=== PATIENT | female | born 1985 | race Caucasian/White ===

== ENCOUNTER 2017-03-05 02:33 | Emergency (ER) | payer SELFPAY ==
[~2017-03-05] VITALS: Ht 160 cm; Wt 68.0 kg
[2017-03-05 02:44] LABS: BASO # 0.1 10*3/uL (0.0-0.1); BASO % 0.3 % (0.0-1.0); EOS # 0.2 10*3/uL (0.0-0.4); HEMATOCRIT 35.2 % (37.0-47.0); HEMOGLOBIN 11.8 g/dl (12.0-16.0); IG # 0.2 10*3/uL (0.0-0.1); LYMPH # 3.3 10*3/uL (1.3-4.4); LYMPH % 16.8 % (27.0-41.0); MEAN CELL VOLUME 91.9 fl (81.0-99.0); MEAN CORPUSCULAR HGB 30.8 pg (27.0-31.0); MEAN CORPUSCULAR HGB CONC 33.5 g/dl (33.0-37.0); MEAN PLATELET VOLUME 9.4 fl (9.6-12.3); MONO # 1.3 10*3/uL (0.1-1.0); MONO % 6.7 % (3.0-9.0); NEUT # 14.4 10*3/uL (2.3-7.9); NEUT % 74.4 % (47.0-73.0); PLATELET COUNT AUTOMATED 244 10*3/uL (130-400); RED BLOOD COUNT 3.83 10*6/uL (4.10-5.10); RED CELL DISTRI WIDTH 13.5 % (0-14.5); WHITE BLOOD COUNT 19.4 10*3/uL (4.8-10.8)
[2017-03-05 03:02] LABS: ALKALINE PHOSPHATASE 43 U/L (45-117); BILIRUBIN, TOTAL 0.2 mg/dl (0.2-1.0); BUN 8 mg/dl (7-24); CARBON DIOXIDE 21 mmol/L (21-32); CHLORIDE 105 mmol/L (98-107); CKMB 4.5 ng/ml (0.5-3.6); CPK 98 U/L (26-192); EST GLOM FILT AFRICAN AMERICAN > 60 ml/min; GLUCOSE 148 mg/dL (65-99); POTASSIUM 3.9 mmol/L (3.5-5.1); SGOT/AST 20 IU/L (3-35); SGPT/ALT 15 U/L (12-78); SODIUM 137 mmol/L (136-145); TOTAL PROTEIN 6.4 gm/dL (6.4-8.2)
[2017-03-05 03:10] LABS: TROPONIN I < 0.015 ng/ml (<0.045)
[2017-03-05 03:19] LABS: BILIRUBIN NEGATIVE (NEGATIVE); BLOOD NEGATIVE (NEGATIVE); CLARITY CLEAR (CLEAR); COLOR YELLOW (YELLOW); GLUCOSE NEGATIVE (NEGATIVE); KETONE NEGATIVE (NEGATIVE); LEUKO ESTERASE NEGATIVE (NEGATIVE); NITRITE NEGATIVE (NEGATIVE); PH 5.5 (5.0-9.0); PROTEIN NEGATIVE (NEGATIVE); UROBILINOGEN 0.2 E.U./dl (0.2-1.0)
[2017-03-05 03:28] LABS: URINE AMPHETAMINES < 1000 (1000ng/ml); URINE BARBITURATES < 200 (200ng/ml); URINE COCAINE < 300 (300ng/ml)
[2017-03-05 03:41] LABS: URINE REFLEX COMMENT NO (NO)
== END 2017-03-05 05:56 | disposition short-term general hospital (02) ==
LOC: ED 02:33
PROVIDERS: Emergency Medicine
DX: O9A.212 Injury, poisoning and certain other consequences of external causes complicating pregnancy, second trimester (principal); T42.8X1A Poisoning by antiparkinsonism drugs and other central muscle-tone depressants, accidental (unintentional), initial encounter; Z3A.23 23 weeks gestation of pregnancy; Y92.9 Unspecified place or not applicable

== ENCOUNTER → 2021-04-01 | Outpatient (CLI) | payer OTHER | END | disposition home or self-care (01) | LOC: RAD 12:39 | PROVIDERS: ATTEND Family Medicine | DX: M79.672 Pain in left foot (principal) ==

== ENCOUNTER 2022-08-11 01:54 | Emergency (ER) | payer OTHER ==
[2022-08-11 02:17] LABS: BASO % 0.9 % (0.0-1.0); EOS # 0.1 10*3/uL (0.0-0.4); EOS % 1.5 % (1.0-4.0); LYMPH % 44.1 % (27.0-41.0); MEAN CELL VOLUME 78.7 fl (81.0-99.0); MEAN CORPUSCULAR HGB 23.8 pg (27.0-31.0); MEAN CORPUSCULAR HGB CONC 30.3 g/dl (33.0-37.0); MEAN PLATELET VOLUME 8.5 fl (9.6-12.3); MONO # 0.4 10*3/uL (0.1-1.0); NEUT % 44.3 % (47.0-73.0); PLATELET COUNT AUTOMATED 60 10*3/uL (130-400); RED BLOOD COUNT 4.45 10*6/uL (4.10-5.10); RED CELL DISTRI WIDTH 19.9 % (0-14.5); WHITE BLOOD COUNT 4.6 10*3/uL (4.8-10.8)
[2022-08-11 02:32] LABS: ALKALINE PHOSPHATASE 71 U/L (45-117); BUN 4 mg/dl (7-24); CHLORIDE 109 mmol/L (98-107); CREATININE 0.51 mg/dL (0.55-1.02); POTASSIUM 3.5 mmol/L (3.5-5.1); SGOT/AST 122 IU/L (3-35); SGPT/ALT 56 U/L (12-78); SODIUM 146 mmol/L (136-145); TOTAL PROTEIN 8.2 gm/dL (6.4-8.2)
[2022-08-11 02:40] LABS: THYROID STIM HORMONE (HS) 0.923 uIU/ml (0.358-4.75)
== END 2022-08-11 03:05 | disposition home or self-care (01) ==
LOC: ED 01:54
PROVIDERS: Internal Medicine
DX: F10.920 Alcohol use, unspecified with intoxication, uncomplicated (principal); E83.42 Hypomagnesemia; D61.818 Other pancytopenia; R79.89 Other specified abnormal findings of blood chemistry; Y90.9 Presence of alcohol in blood, level not specified

== ENCOUNTER 2022-11-19 11:18 | Inpatient (IN) | payer MEDICAID ==
[~2022-11-19] VITALS: Ht 160 cm; Wt 56.5 kg
[2022-11-19 11:31] VITALS: BP 138/78
[2022-11-19 12:17] LABS: BASO # 0.1 10*3/uL (0.0-0.1); BASO % 0.6 % (0.0-1.0); EOS % 0.4 % (1.0-4.0); HEMATOCRIT 32.7 % (37.0-47.0); LYMPH # 0.9 10*3/uL (1.3-4.4); LYMPH % 9.2 % (27.0-41.0); MEAN CELL VOLUME 76.9 fl (81.0-99.0); MEAN CORPUSCULAR HGB 22.4 pg (27.0-31.0); MEAN CORPUSCULAR HGB CONC 29.1 g/dl (33.0-37.0); MEAN PLATELET VOLUME 8.5 fl (9.6-12.3); MONO # 0.7 10*3/uL (0.1-1.0); MONO % 7.2 % (3.0-9.0); NEUT # 7.8 10*3/uL (2.3-7.9); NEUT % 82.3 % (47.0-73.0); PLATELET COUNT AUTOMATED 147 10*3/uL (130-400); RED BLOOD COUNT 4.25 10*6/uL (4.10-5.10); RED CELL DISTRI WIDTH 21.3 % (0-14.5); WHITE BLOOD COUNT 9.5 10*3/uL (4.8-10.8)
[2022-11-19 12:55] LABS: BILIRUBIN Negative (Negative); BLOOD Negative (Negative); CLARITY Cloudy (Clear); COLOR Dark Yellow (Yellow); GLUCOSE Negative (Negative); KETONE Trace (Negative); LEUKO ESTERASE 1+ (Negative); NITRITE Positive (Negative); PH 6.5 (4.5-8.0); SPECIFIC GRAVITY 1.025 (1.001-1.030)
[2022-11-19 13:02] LABS: ALKALINE PHOSPHATASE 56 U/L (46-116); BUN 7 mg/dl (9-23); CHLORIDE 102 mmol/L (98-107); ETHYL ALCOHOL 42.9 mg/dl (<3); POTASSIUM 3.4 mmol/L (3.4-5.1); SGPT/ALT 20 U/L (10-49); TOTAL PROTEIN 7.7 gm/dL (6.0-8.0)
[2022-11-19 13:03] LABS: URINE AMPHETAMINES Negative (1000ng/ml); URINE BARBITURATES Negative (200ng/ml); URINE BENZODIAZEPINES Negative (200ng/ml); URINE CANNABINOIDS (THC) Positive (50ng/ml); URINE COCAINE Negative (300ng/ml); URINE METHADONE Negative (300ng/ml); URINE OPIATES Negative (300ng/ml); URINE PHENCYCLIDINE Negative (25ng/ml)
[2022-11-19 13:06] LABS: BACTERIA 3+; WBC 21-30 wbc/hpf (0-5)
[2022-11-19 14:40] LABS: THYROID STIM HORMONE (HS) 1.982 uIU/ml (0.550-4.780)
[2022-11-19 14:59] LABS: FREE T4 1.22 ng/dl (0.89-1.76)
[2022-11-19 15:00] VITALS: BP 120/69
[2022-11-19 20:00] VITALS: BP 122/83
[2022-11-20] VITALS: BP 123/80
[2022-11-20 05:33] LABS: ALKALINE PHOSPHATASE 48 U/L (46-116); BUN 9 mg/dl (9-23); CHLORIDE 106 mmol/L (98-107); CHOLESTEROL 162 mg/dL (<200); LDL CHOLESTEROL 71 mg/dL (9-159); POTASSIUM 3.2 mmol/L (3.4-5.1); SGPT/ALT 13 U/L (10-49); TRIGLYCERIDES 48 mg/dl (<150)
[2022-11-20 06:21] LABS: BASO # 0.1 10*3/uL (0.0-0.1); BASO % 0.7 % (0.0-1.0); EOS # 0.1 10*3/uL (0.0-0.4); EOS % 1.6 % (1.0-4.0); HEMATOCRIT 33.6 % (37.0-47.0); LYMPH # 1.2 10*3/uL (1.3-4.4); MEAN CELL VOLUME 78.9 fl (81.0-99.0); MEAN CORPUSCULAR HGB 22.3 pg (27.0-31.0); MEAN CORPUSCULAR HGB CONC 28.3 g/dl (33.0-37.0); MEAN PLATELET VOLUME 9.1 fl (9.6-12.3); MONO # 0.5 10*3/uL (0.1-1.0); MONO % 6.8 % (3.0-9.0); NEUT # 4.9 10*3/uL (2.3-7.9); NEUT % 72.6 % (47.0-73.0); PLATELET COUNT AUTOMATED 151 10*3/uL (130-400); RED BLOOD COUNT 4.26 10*6/uL (4.10-5.10); RED CELL DISTRI WIDTH 21.2 % (0-14.5); WHITE BLOOD COUNT 6.8 10*3/uL (4.8-10.8)
[2022-11-20 06:30] LABS: ACT PARTIAL THROMBO TIME 28.7 SECONDS (20.0-32.1); INTERNATIONAL NORM RATIO 1.1 (2.0-3.5)
[2022-11-20 07:13] LABS: VITAMIN D, 25-HYDROXY 25.8 ng/mL (30-100)
[2022-11-20 08:00] VITALS: BP 124/86
[2022-11-20 12:00] VITALS: BP 122/79
[2022-11-20 16:00] VITALS: BP 106/81
[2022-11-20 20:00] VITALS: BP 119/86
[2022-11-21] VITALS: BP 124/87
[2022-11-21 08:00] VITALS: BP 102/68
[2022-11-21 12:00] VITALS: BP 121/75
[2022-11-21 16:00] VITALS: BP 112/72
[2022-11-21 20:00] VITALS: BP 122/83
[2022-11-22] VITALS: BP 102/71
[2022-11-22 06:51] LABS: BASO # 0.1 10*3/uL (0.0-0.1); BASO % 0.9 % (0.0-1.0); EOS # 0.2 10*3/uL (0.0-0.4); EOS % 3.6 % (1.0-4.0); HEMATOCRIT 37.3 % (37.0-47.0); LYMPH # 1.8 10*3/uL (1.3-4.4); LYMPH % 30.3 % (27.0-41.0); MEAN CORPUSCULAR HGB 22.8 pg (27.0-31.0); MEAN CORPUSCULAR HGB CONC 29.2 g/dl (33.0-37.0); MEAN PLATELET VOLUME 9.2 fl (9.6-12.3); MONO # 0.8 10*3/uL (0.1-1.0); MONO % 13.3 % (3.0-9.0); NEUT % 51.6 % (47.0-73.0); PLATELET COUNT AUTOMATED 202 10*3/uL (130-400); RED BLOOD COUNT 4.78 10*6/uL (4.10-5.10); RED CELL DISTRI WIDTH 21.8 % (0-14.5); WHITE BLOOD COUNT 5.9 10*3/uL (4.8-10.8)
[2022-11-22 08:00] VITALS: BP 113/73
[2022-11-22 08:59] LABS: BUN 12 mg/dl (9-23); CHLORIDE 102 mmol/L (98-107)
[2022-11-22] MEDS ORDERED: VITAMIN D350 MC2 GT (11:35)
== END 2022-11-22 12:13 | disposition home or self-care (01) | DRG 775 ==
LOC: ED 11:18 → 4E 13:40 → EDHOLD 13:40 → 4E 14:32
PROVIDERS: Family Medicine; Physician Assistant; Student in an Organized Health Care Education/Training Program; ADMIT Internal Medicine; ATTEND Internal Medicine
DX: F10.930 Alcohol use, unspecified with withdrawal, uncomplicated (principal); E87.1 Hypo-osmolality and hyponatremia; E83.42 Hypomagnesemia; D50.9 Iron deficiency anemia, unspecified; F10.929 Alcohol use, unspecified with intoxication, unspecified; F17.210 Nicotine dependence, cigarettes, uncomplicated; N39.0 Urinary tract infection, site not specified; F12.90 Cannabis use, unspecified, uncomplicated; Y90.9 Presence of alcohol in blood, level not specified; F41.9 Anxiety disorder, unspecified; E87.6 Hypokalemia; Z71.6 Tobacco abuse counseling

== ENCOUNTER 2023-09-27 20:32 | Emergency (ER) | payer MEDICAID ==
[~2023-09-27] VITALS: Ht 160 cm; Wt 66.2 kg
[~2023-09-27 20:32] MED LIST: CIPRO500 MG PO; MELOXICAM15 MG PO; VITAMIN D350 MC2 GT
[2023-09-27 21:44] LABS: BASO % 0.5 % (0.0-1.0); EOS % 0.1 % (1.0-4.0); HEMATOCRIT 37.1 % (37.0-47.0); LYMPH # 1.3 10*3/uL (1.3-4.4); MEAN CELL VOLUME 70.4 fl (81.0-99.0); MEAN CORPUSCULAR HGB 18.8 pg (27.0-31.0); MEAN CORPUSCULAR HGB CONC 26.7 g/dl (33.0-37.0); MEAN PLATELET VOLUME 8.5 fl (9.6-12.3); MONO # 0.9 10*3/uL (0.1-1.0); MONO % 11.2 % (3.0-9.0); NEUT # 5.8 10*3/uL (2.3-7.9); NEUT % 71.8 % (47.0-73.0); PLATELET COUNT AUTOMATED 365 10*3/uL (130-400); RED BLOOD COUNT 5.27 10*6/uL (4.10-5.10); RED CELL DISTRI WIDTH 19.3 % (0-14.5)
[2023-09-27 21:52] LABS: ACT PARTIAL THROMBO TIME 29.1 SECONDS (20.0-32.1)
[2023-09-27 22:01] LABS: ALKALINE PHOSPHATASE 49 U/L (46-116); BUN 10 mg/dl (9-23); CHLORIDE 100 mmol/L (98-107); LIPASE 31 U/L (12-53); POTASSIUM 3.7 mmol/L (3.4-5.1); SGPT/ALT 19 U/L (5-49); TOTAL PROTEIN 8.3 gm/dL (6.0-8.0)
[2023-09-28] MEDS ORDERED: PAXLOVID 300-11 EAC3 PO (02:09)
== END 2023-09-28 02:20 | disposition home or self-care (01) ==
LOC: ED 20:32
PROVIDERS: Internal Medicine
DX: U07.1 COVID-19 (principal); R10.2 Pelvic and perineal pain; F31.9 Bipolar disorder, unspecified; Z98.890 Other specified postprocedural states; F10.10 Alcohol abuse, uncomplicated; F14.90 Cocaine use, unspecified, uncomplicated; F12.90 Cannabis use, unspecified, uncomplicated; F17.210 Nicotine dependence, cigarettes, uncomplicated; F15.90 Other stimulant use, unspecified, uncomplicated

== ENCOUNTER 2024-02-09 09:17 | Inpatient (IN) | payer MEDICAID ==
[~2024-02-09] VITALS: Ht 160 cm; Wt 65.3 kg
[~2024-02-09 09:17] MED LIST changes: +PAXLOVID 300-11 EAC3 PO
[2024-02-09 09:39] VITALS: BP 131/95
[2024-02-09] MEDS ORDERED: MULTIVITAMIN CONCENTRATE (IV) 10 ML,Thiamine 100 MG,FOLIC ACID 1 MG in SODIUM CHLORIDE ... IV ONE (09:50)
[2024-02-09 09:59] LABS: BASO % 0.6 % (0.0-1.0); EOS # 0.1 10*3/uL (0.0-0.4); EOS % 1.4 % (1.0-4.0); HEMATOCRIT 37.5 % (37.0-47.0); LYMPH # 1.4 10*3/uL (1.3-4.4); LYMPH % 21.6 % (27.0-41.0); MEAN CELL VOLUME 71.6 fl (81.0-99.0); MEAN PLATELET VOLUME 8.1 fl (9.6-12.3); MONO # 0.5 10*3/uL (0.1-1.0); MONO % 8.2 % (3.0-9.0); NEUT # 4.4 10*3/uL (2.3-7.9); PLATELET COUNT AUTOMATED 210 10*3/uL (130-400); RED BLOOD COUNT 5.24 10*6/uL (4.10-5.10); RED CELL DISTRI WIDTH 22.4 % (0-14.5); WHITE BLOOD COUNT 6.4 10*3/uL (4.8-10.8)
[2024-02-09 10:13] LABS: ACT PARTIAL THROMBO TIME 28.9 SECONDS (20.0-32.1)
[2024-02-09 10:21] LABS: ALKALINE PHOSPHATASE 68 U/L (46-116); BUN 6 mg/dl (9-23); CHLORIDE 102 mmol/L (98-107); CPK 685 U/L (34-171); ETHYL ALCOHOL 151.9 mg/dl (<3); LIPASE 37 U/L (12-53); POTASSIUM 2.9 mmol/L (3.4-5.1); SGPT/ALT 25 U/L (5-49); TOTAL PROTEIN 7.8 gm/dL (6.0-8.0)
[2024-02-09] MEDS ORDERED: POTASSIUM CHLORIDE 20 MEQ TAB PO ONE (10:30)
[2024-02-09] MEDS ORDERED: DIAZEPAM 10 MG/2 ML SYR IV ONE (14:05)
[2024-02-09 14:29] LABS: BILIRUBIN Negative (Negative); BLOOD Negative (Negative); CLARITY Clear (Clear); COLOR Yellow (Yellow); GLUCOSE Negative (Negative); KETONE Trace (Negative); LEUKO ESTERASE 1+ (Negative); NITRITE Negative (Negative)
[2024-02-09 14:38] LABS: URINE AMPHETAMINES Negative (1000ng/ml); URINE BARBITURATES Negative (200ng/ml); URINE BENZODIAZEPINES Negative (200ng/ml); URINE CANNABINOIDS (THC) Negative (50ng/ml); URINE COCAINE Positive (300ng/ml); URINE METHADONE Negative (300ng/ml); URINE OPIATES Negative (300ng/ml); URINE PHENCYCLIDINE Negative (25ng/ml)
[2024-02-09 14:47] LABS: BACTERIA TRACE; MUCOUS TRACE
[2024-02-09] MEDS ORDERED: hydrOXYzine 50 MG CAP PO PRN (15:30)
[2024-02-09] MEDS ORDERED: Nicotine 21 MG PATCH T PRN (15:30)
[2024-02-09] MEDS ORDERED: METHOCARBAMOL 750 MG TAB PO PRN (15:30)
[2024-02-09] MEDS ORDERED: ACETAMINOPHEN 500 MG TAB PO PRN (15:30)
[2024-02-09] MEDS ORDERED: IBUPROFEN 600 MG TAB PO PRN (15:30)
[2024-02-09] MEDS ORDERED: Loperamide Hydrochloride 2 MG CAP PO PRN ×2 (15:30)
[2024-02-09] MEDS ORDERED: NICOTINE POLACRILEX 4 MG GUM PO PRN (15:30)
[2024-02-09] MEDS ORDERED: Ondansetron Hydrochloride 4 MG/2 ML VIAL IV PRN (15:30)
[2024-02-09] MEDS ORDERED: MG-AL HYDROXIDE/SIMETICONE 30 ML UDC PO PRN (15:30)
[2024-02-09] MEDS ORDERED: BISACODYL 10 MG SUPP R PRN (15:30)
[2024-02-09] MEDS ORDERED: Sennosides A and B 8.6 MG TAB PO PRN (15:30)
[2024-02-09] MEDS ORDERED: Ondansetron Hydrochloride 4 MG TAB PO PRN (15:30)
[2024-02-09] MEDS ORDERED: Dicyclomine Hydrochloride 20 MG TAB PO PRN (15:30)
[2024-02-09] MEDS ORDERED: Midazolam Hydrochloride 2 MG/2 ML VIAL IV PRN (15:35)
[2024-02-09] MEDS ORDERED: Prochlorperazine Edisylate 10 MG/2 ML VIAL IV PRN (16:55)
[2024-02-09 17:00] VITALS: BP 112/70
[2024-02-09] MEDS ORDERED: Chlordiazepoxide Hydrochlori 25 MG CAP PO SCH (18:00)
[2024-02-09 20:00] VITALS: BP 107/61
[2024-02-10] VITALS: BP 111/70
[2024-02-10 06:24] LABS: BASO % 0.8 % (0.0-1.0); EOS # 0.2 10*3/uL (0.0-0.4); EOS % 3.1 % (1.0-4.0); HEMATOCRIT 34.5 % (37.0-47.0); LYMPH # 1.6 10*3/uL (1.3-4.4); LYMPH % 32.8 % (27.0-41.0); MEAN CELL VOLUME 73.1 fl (81.0-99.0); MEAN CORPUSCULAR HGB 20.1 pg (27.0-31.0); MEAN CORPUSCULAR HGB CONC 27.5 g/dl (33.0-37.0); MEAN PLATELET VOLUME 8.6 fl (9.6-12.3); MONO # 0.5 10*3/uL (0.1-1.0); MONO % 9.4 % (3.0-9.0); NEUT # 2.6 10*3/uL (2.3-7.9); NEUT % 53.7 % (47.0-73.0); PLATELET COUNT AUTOMATED 171 10*3/uL (130-400); RED BLOOD COUNT 4.72 10*6/uL (4.10-5.10); RED CELL DISTRI WIDTH 22.3 % (0-14.5); WHITE BLOOD COUNT 4.8 10*3/uL (4.8-10.8)
[2024-02-10 07:27] LABS: ALKALINE PHOSPHATASE 58 U/L (46-116); BUN 8 mg/dl (9-23); CHLORIDE 107 mmol/L (98-107); POTASSIUM 3.5 mmol/L (3.4-5.1); SGPT/ALT 18 U/L (5-49); TOTAL PROTEIN 6.5 gm/dL (6.0-8.0)
[2024-02-10 07:36] LABS: CPK 308 U/L (34-171)
[2024-02-10 08:00] VITALS: BP 124/73
[2024-02-10] MEDS ORDERED: Enoxaparin Sodium 40 MG/0.4 ML SYR SC SCH (10:00)
[2024-02-10] MEDS ORDERED: FOLIC ACID 1 MG TAB PO SCH (10:00)
[2024-02-10] MEDS ORDERED: MULTIVITAMIN 1 TAB TAB PO SCH (10:00)
[2024-02-10] MEDS ORDERED: Thiamine 100 MG TAB PO SCH (10:00)
[2024-02-10 12:00] VITALS: BP 109/72
[2024-02-10 16:00] VITALS: BP 128/68
[2024-02-10 20:00] VITALS: BP 128/89
[2024-02-10] MEDS ORDERED: Chlordiazepoxide Hydrochlori 25 MG CAP PO SCH (20:00)
[2024-02-11] VITALS: BP 120/74
[2024-02-11] MEDS ORDERED: Ondansetron Hydrochloride 4 MG TAB PO ONE (06:10)
[2024-02-11 08:00] VITALS: BP 98/60
[2024-02-11 12:00] VITALS: BP 102/64
[2024-02-11 16:00] VITALS: BP 105/69
[2024-02-11 20:00] VITALS: BP 105/62
[2024-02-11] MEDS ORDERED: Chlordiazepoxide Hydrochlori 25 MG CAP PO SCH (20:00)
[2024-02-12] VITALS: BP 124/79
[2024-02-12] MEDS ORDERED: LORazepam 0.5 MG TAB PO PRN (00:45)
[2024-02-12 08:00] VITALS: BP 106/67
[2024-02-12 12:00] VITALS: BP 99/58
[2024-02-12] MEDS ORDERED: ONDANSETRON4 MG SL (12:19)
[2024-02-12] MEDS ORDERED: ATARAX,VISTARIL50 MG PO (12:19)
== END 2024-02-12 13:25 | disposition home or self-care (01) | DRG 425 ==
LOC: ED 09:17 → EDHOLD 15:26 → 4E 15:26
PROVIDERS: Family Medicine; Internal Medicine; ADMIT Family Medicine; ATTEND Family Medicine
DX: E87.6 Hypokalemia (principal); F10.220 Alcohol dependence with intoxication, uncomplicated; E87.20 Acidosis, unspecified; F10.239 Alcohol dependence with withdrawal, unspecified; F31.32 Bipolar disorder, current episode depressed, moderate; F14.90 Cocaine use, unspecified, uncomplicated; F19.10 Other psychoactive substance abuse, uncomplicated; D50.9 Iron deficiency anemia, unspecified; E03.9 Hypothyroidism, unspecified; F41.1 Generalized anxiety disorder; K21.9 Gastro-esophageal reflux disease without esophagitis; R94.31 Abnormal electrocardiogram [ECG] [EKG]; F43.10 Post-traumatic stress disorder, unspecified; F41.0 Panic disorder [episodic paroxysmal anxiety]; Y90.3 Blood alcohol level of 60-79 mg/100 ml

== ENCOUNTER 2024-04-04 16:53 | Emergency (ER) | payer MEDICAID ==
[~2024-04-04] VITALS: Ht 160 cm; Wt 66.2 kg
[~2024-04-04 16:53] MED LIST changes: +ATARAX,VISTARIL50 MG PO; +ONDANSETRON4 MG SL
[2024-04-04] MEDS ORDERED: SODIUM CHLORIDE 0.9% 1,000 ML IV ONE (17:45)
[2024-04-04] MEDS ORDERED: IOHEXOL 300 MG/ML 100 ML VIAL IV ONE (17:50)
[2024-04-04 18:07] LABS: BASO # 0.1 10*3/uL (0.0-0.1); BASO % 0.9 % (0.0-1.0); EOS # 0.2 10*3/uL (0.0-0.4); EOS % 2.8 % (1.0-4.0); HEMATOCRIT 38.6 % (37.0-47.0); LYMPH # 2.3 10*3/uL (1.3-4.4); LYMPH % 34.4 % (27.0-41.0); MEAN CORPUSCULAR HGB 20.4 pg (27.0-31.0); MEAN PLATELET VOLUME 8.1 fl (9.6-12.3); MONO # 0.8 10*3/uL (0.1-1.0); MONO % 11.7 % (3.0-9.0); NEUT # 3.4 10*3/uL (2.3-7.9); NEUT % 50.1 % (47.0-73.0); PLATELET COUNT AUTOMATED 344 10*3/uL (130-400); RED BLOOD COUNT 5.29 10*6/uL (4.10-5.10); RED CELL DISTRI WIDTH 19.6 % (0-14.5); WHITE BLOOD COUNT 6.7 10*3/uL (4.8-10.8)
[2024-04-04] MEDS ORDERED: WELLBUTRIN SR100 MG PO (18:09)
[2024-04-04] MEDS ORDERED: RISPERDAL2 M1 PO (18:10)
[2024-04-04] MEDS ORDERED: PRAZOSIN HCL2 MG PO (18:10)
[2024-04-04 18:33] LABS: ALKALINE PHOSPHATASE 51 U/L (46-116); BUN 7 mg/dl (9-23); CHLORIDE 108 mmol/L (98-107); POTASSIUM 3.4 mmol/L (3.4-5.1); SGPT/ALT 11 U/L (5-49); TOTAL PROTEIN 7.9 gm/dL (6.0-8.0)
[2024-04-04] MEDS ORDERED: ACETAMINOPHEN 325 MG TAB PO ONE (18:55)
[2024-04-04 19:18] LABS: BILIRUBIN Negative (Negative); BLOOD 3+ (Negative); CLARITY Clear (Clear); COLOR Yellow (Yellow); GLUCOSE Negative (Negative); KETONE Negative (Negative); LEUKO ESTERASE Negative (Negative); NITRITE Negative (Negative); SPECIFIC GRAVITY >= 1.030 (1.001-1.030)
[2024-04-04 19:26] LABS: RBC 41-50 rbc/hpf (0-2)
[2024-04-04 19:27] LABS: BACTERIA 1+; EPITHELIAL CELLS 31-40
[2024-04-04] MEDS ORDERED: HYDROmorphONE Hydrochloride 0.5 MG/0.5 ML SYRINGE IV ONE (21:05)
[2024-04-04] MEDS ORDERED: Ciprofloxacin Hydrochloride 500 MG TAB PO ONE (21:05)
[2024-04-04] MEDS ORDERED: Ondansetron Hydrochloride 4 MG/2 ML VIAL IV ONE (21:05)
[2024-04-04] MEDS ORDERED: METRONIDAZOLE500 M1 PO (21:09)
[2024-04-04] MEDS ORDERED: CIPRO500 MG PO (21:09)
[2024-04-04] MEDS ORDERED: METRONIDAZOLE 500 MG TAB PO ONE (21:10)
== END 2024-04-04 22:07 | disposition home or self-care (01) ==
LOC: ED 16:53
PROVIDERS: Internal Medicine
DX: K52.9 Noninfective gastroenteritis and colitis, unspecified (principal); E87.20 Acidosis, unspecified; D50.9 Iron deficiency anemia, unspecified; N20.0 Calculus of kidney; N83.201 Unspecified ovarian cyst, right side; R11.2 Nausea with vomiting, unspecified; F17.290 Nicotine dependence, other tobacco product, uncomplicated; Z79.899 Other long term (current) drug therapy

== ENCOUNTER → 2024-04-19 | Outpatient (CLI) | payer MEDICAID ==
[~2024-04-19] MED LIST changes: +METRONIDAZOLE500 M1 PO; +PRAZOSIN HCL2 MG PO; +RISPERDAL2 M1 PO; +WELLBUTRIN SR100 MG PO
== END ==
LOC: US 13:41
PROVIDERS: ATTEND Family Medicine
DX: N83.201 Unspecified ovarian cyst, right side (principal)